=== PATIENT | male | born 1950 | race Caucasian/White ===

== ENCOUNTER 2017-04-25 17:50 | Emergency (ER) | payer MEDICARE, OTHER ==
[2017-04-25] MEDS ORDERED: EPINEPHrine 1 MG/10 ML Abboject SYRINGE ONE (18:00)
[2017-04-25] MEDS ORDERED: Sodium Bicarb 50 MEQ/50 ML Abboject 8.4% SYRINGE ONE ×2 (18:12→18:13)
[2017-04-25] MEDS ORDERED: Sodium Bicarbonate 2.4 MEQ/5 ML ONE (18:12)
[2017-04-25 18:31] LABS: Hematocrit 53.3 % (42.0-52.0); Mean Platelet Volume 10.5 fL (7.4-10.4); Red Blood Cell (RBC) Count 4.84 mill/uL (4.70-6.10); White Blood Cell (WBC) Count 19.8 thou/uL (4.8-10.8)
[2017-04-25 18:32] LABS: Anion Gap 18 mmol/L (-14-95); Critical Call POC Critical Value; Lactate 14.29 mmol/L (0.50-2.20); POC Est. GFR-MDRD-African-Amer 56; POC Estimated GFR-MDRD 46; T. Carbon Dioxide 23.1 mmol/L (1.0-85.0); pH (Venous) 6.807 (7.35-7.45)
[2017-04-25 18:35] LABS: PTT 49.7 SEC (22.9-36.1); Prothrombin Time 17.6 SEC (12.0-14.7)
[2017-04-25 18:37] LABS: ALT (SGPT) 24 U/L (8-55); AST (SGOT) 33 U/L (5-34); Alkaline Phosphatase 102 U/L (40-150); Anion Gap 26 mmol/L (10-20); BUN (Urea Nitrogen) 29 mg/dL (8.4-25.7); Bilirubin, Total 0.9 mg/dL (0.2-1.2); Calc. Creatinine Clearance 0 mL/min (70-130); Calcium 8.6 mg/dL (7.8-10.44); Carbon Dioxide 13 mmol/L (23-31); Chloride 108 mmol/L (98-107); Estimated GFR-MDRD 47; Globulin 2.8 g/dL (2.4-3.5); Protein, Total 6.1 g/dL (5.8-8.1)
[2017-04-25 18:40] LABS: Troponin I 0.256 ng/mL (< 0.028)
[2017-04-25 19:04] LABS: Band 1 % (5-11); Neutrophil 58 % (42-75)
--- NOTE | 2017-04-25 20:34 | CON ---
DATE OF CONSULTATION: 04/25/2017 CRITICAL CARE NOTE TOTAL CRITICAL CARE TIME: 45 minutes. I was called to the ER to assess Mr. Cruz. HISTORY OF PRESENT ILLNESS: Briefly, Mr. Cruz is a 66-year-old gentleman who, from his 's his tory, became acutely short of breath and tremulous. A 911 was called. He was taken in for oxygen in to the ambulance. He decided to proceed to the emergency room. He then had respiratory failure and was bagged while in the ambulance. Upon my arrival, CPR was in progress. He had a wide complex tachycardia with no pulse. CPR ensued. After multiple rounds of sodium bicarbonate in addition to epinephrine and was placed on norepinephr ine drip, he did regain a pulse. Heart rate was in the 170s. I felt this was consistent with ventri cular tachycardia. I therefore recommended cardioversion x3. He continued to have wide complex tach ycardia. He was then given amiodarone therapy IV. He did not convert but he slowed down and maintai mushtaq a pulse. He then became bradycardic and lost a pulse. Again, multiple rounds of CPR were perfor med. After 40 minutes of CPR, we decided to call the code. My condolences were given to the with all questions answered.
== END 2017-04-25 18:35 | disposition expired ==
LOC: ERS 17:50
DX: I46.9 Cardiac arrest, cause unspecified (principal); I21.9 Acute myocardial infarction, unspecified; J96.90 Respiratory failure, unspecified, unspecified whether with hypoxia or hypercapnia; I11.0 Hypertensive heart disease with heart failure; I50.9 Heart failure, unspecified
CPT/HCPCS: 36416; 80053; 82330; 82553; 82803; 83605; 84484; 85025; 85610; 85730; 86850; 86900; 86901; 92950; 93005; 96365; 96374; 96375; 96376; J0171; J0282